=== PATIENT | female | born 1965 | race African-American/Black ===

== ENCOUNTER 2017-11-27 07:36 | Emergency (ER) | payer OTHER ==
[~2017-11-27] VITALS: Ht 167.6 cm; Wt 103.9 kg
[~2017-11-27 07:36] MED LIST: BACITRACIN15 GM TOPIC; BACTRIM DS TAB1 EAC1 ORAL; IBUPROFEN600 MG ORAL; NKM
[2017-11-27 07:42] VITALS: BP 139/87
--- NOTE | 2017-11-27 08:24 | Emergency Room Report ---
History of Present Illness General Chief Complaint: Eye Problems Source: Patient Present Illness HPI This patient states that she noticed that her right eye had blood/redness on it yesterday when she happened to look into the mirror. She states when she woke up this morning it seemed worse. She states that she had no trauma. She has no other bleeding. She has no pain. She has no blurry vision. She has no headache. She denies recent illness. She has no other complaints. Allergies: Coded Allergies: NO KNOWN ALLERGIES (Unverified Allergy, Unknown, 02/16/15) Patient History Past Medical History: none Past Surgical History: none Social History: Denies: smoking, alcohol use, drug use Last Menstrual Period: n/a Now: No Reviewed Nursing Documentation: PMH: Agreed, PSxH: Agreed Nursing Documentation-PMH Past Medical History: No Stated History Review of Systems All Other Systems: negative except mentioned in HPI Physical Exam Vital Signs Date Time Temp Pulse Resp B/P (MAP) Pulse Ox O2 Delivery O2 Flow Rate FiO2 11/27/17 07:42 74 18 139/87 98 Room Air 11/27/17 07:42 98.4 98.4 Sp02 EP Interpretation: reviewed, normal General Appearance: no apparent distress, alert, GCS 15, non-toxic Head: normocephalic, atraumatic Eyes: right eye other - +small blood in conjunctiva with dimitry-iris sparing., left eye normal inspection, bilateral eye PERRL ENT: hearing grossly normal, normal pharynx, no angioedema, normal voice Neck: normal inspection, full range of motion Respiratory: no respiratory distress, no retraction, no accessory muscle use, speaking full sentences Rectal: deferred Musculoskeletal: normal inspection, gait/station normal, normal range of motion Neurologic: alert, oriented x3, responsive, motor strength/tone normal, speech normal Psychiatric: judgement/insight normal, memory normal, mood/affect normal, no suicidal/homicidal ideation Skin: normal inspection, normal color, warm/dry, well hydrated Medical Decision Making Diagnostic Impression: Primary Impression: Subconjunctival hemorrhage of right eye ER Course This patient has a small subconjunctival hemorrhage of the right conjunctiva. The eye exam and history is otherwise benign. There are no red flags on exam such as blurry vision, pain or history of trauma that would make me concerned for an emergency medical condition such as ruptured globe, acute angle glaucoma , bacterial infection. At this time I did not identify an emergency medical condition. The patient is given return precautions and follow-up instructions. Last Vital Signs Date Time Temp Pulse Resp B/P (MAP) Pulse Ox O2 Delivery O2 Flow Rate FiO2 11/27/17 07:42 98.4 74 18 139/87 98 Room Air 98.4 Disposition: HOME, SELF-CARE Condition: Improved DORI SCHAEFER D.O. Nov 27, 2017 08:24
[2017-11-27 08:28] VITALS: BP 137/87
== END 2017-11-27 08:28 | disposition home or self-care (01) ==
LOC: EMR 08:19
DX: H11.31 Conjunctival hemorrhage, right eye (principal)
CPT/HCPCS: 99282

== ENCOUNTER 2018-12-01 08:34 | Emergency (ER) | payer OTHER ==
[~2018-12-01] VITALS: Ht 165.1 cm; Wt 103.4 kg
--- NOTE | 2018-12-01 08:45 | NUR ---
ED Nurse Note: Patient walked into ED by herself from home, patient reports that she twisted her LEFT ankle while walking down the stairs at home today this morning. a/o x4, ambulatory. ice pack is applied.
--- NOTE | 2018-12-01 09:00 | NUR ---
ED Nurse Note: called xray and reminded about xray order.
--- NOTE | 2018-12-01 09:25 | NUR ---
ED Nurse Note: patient taken down to xray
--- NOTE | 2018-12-01 09:35 | NUR ---
ED Nurse Note: patient came back from xray
--- NOTE | 2018-12-01 10:16 | NUR ---
ED Nurse applied acewrap as ordered by Dr. Medina applied ankle air foam support by biomass plant technician as ordered by Dr. Medina
--- NOTE | 2018-12-01 10:17 | Emergency Room Report ---
History of Present Illness General Chief Complaint: Lower Extremity Injury Source: Patient Present Illness HPI 53-year-old female presents ED for evaluation. Plating of left ankle pain and swelling. States she tripped going down the stairs this morning. Rolled her left ankle. Presents with pain and swelling to the left ankle. Throbbing, 7 out of 10, nonradiating. Notes pain but is able to bear weight. Denies any other injuries. No other aggravating relieving factors. Denies any other associated symptoms Allergies: Coded Allergies: NO KNOWN ALLERGIES (Unverified Allergy, Unknown, 02/16/15) Patient History Past Medical History: none Past Surgical History: none Pertinent Family History: none Social History: Denies: smoking, alcohol use, drug use Now: No : 0 Immunizations: UTD Reviewed Nursing Documentation: PMH: Agreed; PSxH: Agreed Nursing Documentation-PMH Past Medical History: No Stated History Review of Systems All Other Systems: negative except mentioned in HPI Physical Exam Vital Signs Date Time Temp Pulse Resp B/P (MAP) Pulse Ox O2 Delivery O2 Flow Rate FiO2 12/01/18 08:39 97.9 83 16 124/78 97 Room Air Sp02 EP Interpretation: reviewed, normal General Appearance: no apparent distress, alert, GCS 15, non-toxic Head: normocephalic Eyes: bilateral eye normal inspection, bilateral eye PERRL ENT: normal ENT inspection Neck: normal inspection Respiratory: normal inspection Cardiovascular #1: normal inspection Gastrointestinal: normal inspection Rectal: deferred Genitourinary: no CVA tenderness Musculoskeletal: swelling - L ankle Neurologic: alert, oriented x3, responsive, motor strength/tone normal, sensory intact, speech normal Psychiatric: normal inspection Skin: normal inspection Lymphatic: normal inspection Procedures Splinting Splinting : Consent: Verbal Pre-Made Type: aircast for ankle Pre-Proc Neuro Vasc Exam: normal Post-Proc Neuro Vasc Exam: normal Patient Tolerated: Well Complications: None Medical Decision Making Diagnostic Impression: Primary Impression: Ankle sprain Qualified Codes: S93.402A - Sprain of unspecified ligament of left ankle, initial encounter ER Course Hospital Course 53-year-old F presents to ED complaining of L ankle pain s/p trip and fall Differential diagnoses include: Fracture, dislocation, sprain, contusion Clinical course Patient placed on stretcher. After initial history and physical, I ordered xrays of L ankle. patient declined pain meds Xrays prelim read shows no acute fracture/dislocation. Placed in an air splint Discussed findings with patient. Recommend ice, elevation, NSAIDS Safe for discharge with close outpatient follow-up. We'll provide her with ortho referrals Diagnosis - ankle sprain Stable and discharged to home with prescription for Motrin. apply ice, keep elevated. weight bear as tolerated. Followup with PMD/ortho. Return to ED if symptoms recur or worsen Other X-Ray Diagnostic Results Other X-Ray Diagnostic Results : X-Ray ordered: L ankle # of Views/Limited Vs Complete: 3 View Indication: Pain EP Interpretation: Yes Interpretation: no dislocation, no fractures Impression: No acute disease Electronically Signed by: Electronically signed by Jacinto Saavedra MD Last Vital Signs Date Time Temp Pulse Resp B/P (MAP) Pulse Ox O2 Delivery O2 Flow Rate FiO2 12/01/18 08:39 97.9 83 16 124/78 97 Room Air Status: improved Disposition: HOME, SELF-CARE Condition: Stable Scripts Ibuprofen* (MOTRIN*) 600 Mg Tablet 600 MG ORAL Q8H PRN for For Pain, #30 TAB 0 Refills Prov: Jacinto Saavedra MD 12/01/18 Referrals: [facility],REFERRING (PCP) Jacinto Saavedra MD Dec 01, 2018 10:17
--- NOTE | 2018-12-01 10:18 | Diagnostic Imaging Report ---
Indication: Left ankle pain, status post trauma Technique: 3 views of the left ankle Comparison: none Findings: There is soft tissue swelling over the lateral malleolus. No acute fractures. No dislocations. The joint spaces are preserved. There are degenerative proliferative changes of the medial malleolus. There is a small plantar spur. Impression: No acute bony trauma Evidence of lateral soft tissue injury
[2018-12-01] MEDS ORDERED: IBUPROFEN600 MG ORAL (10:24)
[2018-12-01 10:32] VITALS: BP 124/78
--- NOTE | 2018-12-01 10:33 | NUR ---
ER DISCHARGE NOTE: Patient is cleared to be discharged per ERMD, pt is aox4, on room air, with stable vital signs. pt was given dc and prescription instructions, pt was able to verbalize understanding, pt id band removed without complications. pt is able to ambulate with steady gait. pt took all belongings. patient walked with estela wrap on and ankle foam support on. patient refused to take crutches with her, stating that she has 1 pair at home and she does not want another pair, she will be ok to go home like this.
== END 2018-12-01 10:35 | disposition home or self-care (01) ==
LOC: EMR 09:10
DX: S93.402A Sprain of unspecified ligament of left ankle, initial encounter (principal); W01.0XXA Fall on same level from slipping, tripping and stumbling without subsequent striking against object, initial encounter; Y92.008 Other place in unspecified non-institutional (private) residence as the place of occurrence of the external cause
CPT/HCPCS: 29515; 99283